=== PATIENT | female | born 1985 | race Caucasian/White ===

== ENCOUNTER 2017-04-22 01:10 | Emergency (ER) | payer OTHER ==
[2017-04-22 02:15] LABS: microscopic required? YES; urine erythrocyte 1+ (NEGATIVE)
[2017-04-22 03:49] VITALS: BP 116/73
== END 2017-04-22 03:49 | disposition short-term general hospital (02) ==
LOC: ED 01:10
PROVIDERS: Emergency Medicine
DX: O23.43 Unspecified infection of urinary tract in pregnancy, third trimester (principal); O23.03 Infections of kidney in pregnancy, third trimester; N13.6 Pyonephrosis; Z3A.32 32 weeks gestation of pregnancy; Z87.442 Personal history of urinary calculi
CPT/HCPCS: J0696; J1170; J2270; J2405; J7030